=== PATIENT | female | born 1990 | race Caucasian/White ===

== ENCOUNTER 2019-02-22 12:04 | Emergency (ER) | payer OTHER ==
[2019-02-22 12:14] VITALS: BMI 28.8
[2019-02-22] MEDS ORDERED: SODIUM CHLORIDE 0.9% 500 ML INFUS.BAG IV ONE (12:48)
[2019-02-22] MEDS ORDERED: ONDANSETRON 4 MG/2 ML VIAL IVPUSH ONE (12:49)
[2019-02-22] MEDS ORDERED: ACETAMINOPHEN 1000 MG/100 ML VIAL (NON FORMULARY) IVPB ONE (12:49)
--- NOTE | 2019-02-22 13:05 | PDOC ---
History of Present Illness - General Chief Complaint: Nausea/Vomiting Stated Complaint: SICK, VOMITTING Time Seen by Provider: 02/22/19 12:41 - History of Present Illness Initial Comments: 02/22/19 13:09 28yo F hx migraines controlled by Ibuprofen 200mg presents from home c/o nausea , vomiting, abdominal pain, and headache s/p alcohol and Hookah use last night. Pt drank 5 mixed drinks and smoked a moderate amount of Hookah last night and started to feel ill at approx 0100. Denies drug use, MJ use. Social drinker, rarely uses Hookah, rarely drinks this much. Pt went home and had NBNB emesis x6. After vomiting, pt developed epigastric pain, intermittent, worse with vomiting, cramping type. Pt tried osbaldo seltzer but threw it up. Unable to keep food or water down. Denies hx of epigastric pain. Pt states that her headache feels like her normal migraine, R-sided, pressure type, constant since this AM, worsening, associated photophobia. Usually Advil Migraine resolves her migraines but she was unable to keep it down today. Endorses fatigue and minimal NB slightly watery diarrhea x3 this AM. Denies recent travel, sick contacts, surgeries, trauma/falls, F/C, blurred vision, neck pain, back pain, numbness/tingling, weakness, CP, SOB, dysuria, hematuria, blood in stool or vomit. Pt states on period, no change of . Past History - Past Medical History Allergies/Adverse Reactions: Allergies Allergy/AdvReac Type Severity Reaction Status Date / Time No Known Allergies Allergy Unverified 02/22/19 12:14 Home Medications: Ambulatory Orders NK [No Known Home Medication] 02/22/19 COPD: No Other medical history: denies - Suicide/Smoking/Psychosocial Hx Smoking History: Current some day smoker Information on smoking cessation initiated: No Hx Alcohol Use: Yes (occasional) Drug/Substance Use Hx: No Review of Systems - Review of Systems Comments:: 02/22/19 13:05 Constitutional: Positive for fatigue. Negative for chills, fever. HENT: Negative for sore throat, rhinorrhea, congestion. Eyes: Positive for photophobia. Negative for blurry vision. Respiratory: Negative for shortness of breath, cough, and wheezing. Cardiovascular: Negative for chest pain, palpitations, and leg swelling. Gastrointestinal: Positive for epigastric pain, diarrhea, nausea, and vomiting. Negative for blood in stool, constipation. Genitourinary: Negative for dysuria, flank pain, and hematuria. Musculoskeletal: Negative for myalgias, back pain, and neck pain. Skin: Negative for rash. Neurological: Positive for headache. Negative for light-headedness, dizziness, syncope, weakness, numbness. Psychiatric/Behavioral: Negative for behavioral problems and confusion. *Physical Exam - Vital Signs Last Vital Signs Temp Pulse Resp BP Pulse Ox 97.7 F 84 18 122/80 95 02/22/19 12:09 02/22/19 12:09 02/22/19 12:09 02/22/19 12:09 02/22/19 12:09 - Physical Exam Comments: 02/22/19 13:07 Gen: Alert, NAD, uncomfortable-appearing, lying curled up in dark room. HEENT: Neck supple, full ROM. PERRL, EOMI, MMM, NCAT. No conjunctival pallor. Sclera are non-icteric. Oropharynx is clear. CV: Regular rate and rhythm. No murmurs, rubs, or gallops. PULM: No resp distress. CTAB, no wheezes, rales, or rhonchi. ABD: epigastric TTP, soft, ND, no rebound tenderness or guarding, no CVA tenderness. BACK: No TTP of c/t/l-spine. No step-offs or deformities. MSK: No bony deformities. 2+ pulses in all extremities. NEURO: AAOx3. PERRL. No gross CN deficits. No pronator drift. No dysmetria. No dysdiadochokinesia. No abnormal nystagmus. 5/5 strength in all extremities. Sensation to light touch intact in all extremities. EXTREMITIES: No cyanosis. No clubbing. No edema. No calf tenderness. PSYCH: Normal mood and thought pattern. SKIN: Warm and dry. Normal capillary refill. No rashes. No jaundice. ED Treatment Course - LABORATORY CBC & Chemistry Diagram: 02/22/19 13:25 02/22/19 13:25 Medical Decision Making - Medical Decision Making 02/22/19 12:54 28yo F hx migraines controlled by Ibuprofen 200mg presents with nausea, emesis, epigastric pain, and headache s/p alcohol and Hookah use last night. Hemodynamically stable, non-acute abdomen, TTP only in epigastric area. Migraine consistent with previous migraines - tx with Ibuprofen. Neurologically intact, neck supple, afebrile, atraumatic - not concerning for SAH, intracranial hemorrhage, or meningitis. Acute nausea and emesis consistent with sx of post-alcohol intoxication. Epigastric pain started after and is worse with emesis, most consistent with GERD or irritation from vomiting - give IVF and Zofran. Hemodynamically stable, no back pain, and no RFs concerning for AAA. Hemodynamically stable, NB emesis, and no crepitus concerningfor Boerhaave' s. Low concern for pancreatitis, biliary colic, or GI infection due to presentation and lack of RUQ pain - assess with CBC, CMP, Lipase. -Labs: CBC, CMP, Lipase, serum -1L NS -Zofran 4mg for nausea -Tylenol 1g for pain, Ibuprofen for pain (after ) -Dispo: likely d/c home pending w/u Dr Sequeira illicited RUQ TTP on exam - will do POCUS RUQ. 02/22/19 14:27 No concerning findings on RUQ POCUS. Labs reviewed. No concerning findings. No signs of infection, pancreatitis, or cholecystitis. test negative. Give Ibuprofen. Pt drinking water. 02/22/19 14:31 Pt feeling better and wants to go home. Will take PO ibuprofen at home. Return precautions given. Pt. understands all dc instructions and all questions were answered. *DC/Admit/Observation/Transfer Diagnosis at time of Disposition: Epigastric abdominal pain - Discharge Dispostion Disposition: HOME Condition at time of disposition: Improved Decision to Admit order: No - Referrals Referrals: [facility] [place] [facility] [place] [Provider Group] - Patient Instructions Printed Discharge Instructions: DI for Epigastric Pain Additional Instructions: You have been seen in the Emergency Department for your vomiting, abdominal pain , and headache. Your ultrasound and labs show no signs concerning for an emergent condition such as issues with your pancreas or gallbladder. Your symptoms are most likely due to alcohol intoxication. At this time, it's most important to stay hydrated. If you experience pain, you can take Tylenol or Ibuprofen as directed on the medication bottle, but do not exceed 3g of Ibuprofen or 4g of Tylenol a day. We have referred you to a primary care clinic. Call them to set up a follow-up appointment this week. Return to the ED immediately if you experience pain not controlled by over the counter medications, dizziness, blood in vomit, severe vomiting, or any other new or worsening symptom. - Post Discharge Activity
[2019-02-22] MEDS ORDERED: ONDANSETRON 4 MG/2 ML VIAL ONE (13:12)
[2019-02-22] MEDS ORDERED: ACETAMINOPHEN INJECTION 100 ML IVPB ONE (13:12)
[2019-02-22 13:57] LABS: ALBUMIN 3.6 g/dl (3.4-5.0); BILIRUBIN,TOTAL 0.2 mg/dL (0.2-1); BLOOD UREA NITROGEN 8.9 mg/dL (7-18); CALCIUM 9.1 mg/dL (8.5-10.1); CREATININE 0.9 mg/dL (0.55-1.3); POTASSIUM 3.9 mmol/L (3.5-5.1); TOT PROT 7.3 g/dl (6.4-8.2)
[2019-02-22 14:04] LABS: BASO % 0.8 % (0-2.0); EOS % 0.4 % (0-4.5); HEMATOCRIT 38.5 % (32.4-45.2); HEMOGLOBIN 13.2 GM/dL (10.7-15.3); LYMPH % 16.7 % (8-40); MCH 30.8 pg (25.7-33.7); MCHC 34.3 g/dl (32.0-36.0); MEAN CELL VOLUME 89.8 fl (80-96); MEAN PLT VOLUME 10.3 fl (7.5-11.1); MONO % 7.5 % (3.8-10.2); NEUT % 74.6 % (42.8-82.8); RBC 4.29 M/mm3 (3.60-5.2); RDW 13.6 % (11.6-15.6); WHITE BLOOD COUNT 7.7 K/mm3 (4.0-10.0)
[2019-02-22] MEDS ORDERED: IBUPROFEN 800 MG/8 ML IJ IVPB ONE (14:22)
[2019-02-22 14:24] LABS: PLATELET COUNT 240 K/MM3 (134-434)
[2019-02-22 14:54] VITALS: BP 105/65; PULSE 66; TEMP 98
== END 2019-02-22 15:47 | disposition home or self-care (01) ==
LOC: JER 12:04
PROC: 3E033GC Introduction of Other Therapeutic Substance into Peripheral Vein, Percutaneous Approach (ICD-10-PCS; principal; 2019-02-22)
PROC: 3E033NZ Introduction of Analgesics, Hypnotics, Sedatives into Peripheral Vein, Percutaneous Approach (ICD-10-PCS; 2019-02-22)
PROC: BW40ZZZ Ultrasonography of Abdomen (ICD-10-PCS; 2019-02-22)
DX: R10.13 Epigastric pain (principal)
CPT/HCPCS: 36415; 76705-TC; 80053; 83690; 84703; 85025; 99283-25; J0131